=== PATIENT | female | born 1985 | race Caucasian/White ===

== ENCOUNTER 2017-08-30 13:23 | Emergency (ER) | payer SELFPAY ==
[~2017-08-30] VITALS: Ht 162.6 cm; Wt 49.9 kg
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
[2017-08-30] MEDS ORDERED: Bacitracin Oint UD TOPIC ONE (13:45)
[2017-08-30 13:50] VITALS: BP 108/78
[2017-08-30] MEDS ORDERED: Norco 5mg/325mg tab ORAL ONE (14:00)
--- NOTE | 2017-08-30 14:13 | Diagnostic Imaging Report ---
EXAM: XR Right Hand Complete, 3 or More Views CLINICAL HISTORY: PAIN TECHNIQUE: Frontal, lateral and oblique views of the right hand. COMPARISON: No relevant prior studies available. FINDINGS: Bones/joints: No acute fracture. Query lucency/erosion at the base of the fifth metacarpal. Soft tissues: No radiodense foreign body. IMPRESSION: No acute fracture.
--- NOTE | 2017-08-30 14:15 | Diagnostic Imaging Report ---
EXAM: CT Head Without Intravenous Contrast CLINICAL HISTORY: PAIN TECHNIQUE: Axial computed tomography images of the head/brain without intravenous contrast. CTDI is 0.15 + 70.38 mGy and DLP is 1365 mGy-cm. One or more of the following dose reduction techniques were used: automated exposure control, adjustment of the mA and/or kV according to patient size, use of iterative reconstruction technique. COMPARISON: No relevant prior studies available. FINDINGS: Brain: No intracranial hemorrhage. Old lacunes vs. virchow fabian spaces in the basal ganglia. Ventricles: No ventriculomegaly. Bones/joints: No acute fracture. Soft tissues: Soft tissue swelling in the forehead. Sinuses: No acute sinusitis. Mastoid air cells: No mastoid effusion. IMPRESSION: No intracranial hemorrhage.
--- NOTE | 2017-08-30 14:20 | Diagnostic Imaging Report ---
EXAM: XR Left Elbow Complete, 3 or More Views CLINICAL HISTORY: PAIN TECHNIQUE: Frontal, lateral and oblique views of the left elbow. COMPARISON: No relevant prior studies available. FINDINGS: Bones/joints: Comminuted fracture of the olecranon with intra- articular extension. Soft tissues: Soft tissue swelling and effusion. IMPRESSION: Comminuted fracture of the olecranon with intra-articular extension.
[2017-08-30] MEDS ORDERED: Lidocaine 1% MPF 10mg/ml 5ml ONE (14:53)
[2017-08-30] MEDS ORDERED: Lidocaine 1% Plain 30 ml INJ ONE (15:00)
[2017-08-30] MEDS ORDERED: CEPHALEXIN500 MG ORAL (15:10)
[2017-08-30] MEDS ORDERED: PERMETHRIN60 GM TOPIC (15:10)
[2017-08-30] MEDS ORDERED: ACETAMINOPHEN-1 EAC1 ORAL (15:10)
[2017-08-30 15:40] VITALS: BP 77/78
== END 2017-08-30 16:52 | disposition home or self-care (01) ==
LOC: EDBD 13:23 → EMR 14:00
DX: S52.032A Displaced fracture of olecranon process with intraarticular extension of left ulna, initial encounter for closed fracture (principal); S61.215A Laceration without foreign body of left ring finger without damage to nail, initial encounter; W19.XXXA Unspecified fall, initial encounter; Y92.9 Unspecified place or not applicable; B85.2 Pediculosis, unspecified
CPT/HCPCS: 70450; 99284

== ENCOUNTER 2017-09-02 02:01 | Emergency (ER) | payer SELFPAY ==
[~2017-09-02] VITALS: Ht 162.6 cm; Wt 49.9 kg
[~2017-09-02 02:01] MED LIST: ACETAMINOPHEN-1 EAC1 ORAL; CEPHALEXIN500 MG ORAL; PERMETHRIN60 GM TOPIC
[2017-09-02 02:25] VITALS: BP 114/76
[2017-09-02] MEDS ORDERED: PERMETHRIN60 GM TOPIC (03:25)
[2017-09-02] MEDS ORDERED: CEPHALEXIN500 MG ORAL (03:25)
[2017-09-02] MEDS ORDERED: ACETAMINOPHEN-1 EAC1 ORAL (03:25)
[2017-09-02 03:37] VITALS: BP 114/76
--- NOTE | 2017-09-02 05:04 | Emergency Room Report ---
History of Present Illness General Chief Complaint: General Complaint Source: Patient Present Illness HPI 31-year-old female presents ED for evaluation. Patient states that she has a elbow fracture and was seen here recently. States that the splint is loose and needs to be adjusted. Patient also states that she lost her prescriptions. Pain is throbbing, 8 out of 10, nonradiating. No other aggravating relieving factors. Denies any other associated symptoms Allergies: Coded Allergies: No Known Allergies (Unverified , 08/30/17) Patient History Past Medical History: none Past Surgical History: none Pertinent Family History: none Social History: Denies: smoking, alcohol use, drug use Last Menstrual Period: ON PERIOD Now: No Immunizations: UTD Reviewed Nursing Documentation: PMH: Agreed; PSxH: Agreed Nursing Documentation-PMH Past Medical History: No Stated History Review of Systems All Other Systems: negative except mentioned in HPI Physical Exam Vital Signs Date Time Temp Pulse Resp B/P (MAP) Pulse Ox O2 Delivery O2 Flow Rate FiO2 09/02/17 02:10 98.3 98 18 114/76 98 Room Air 98.2 Sp02 EP Interpretation: reviewed, normal General Appearance: no apparent distress, alert, GCS 15, non-toxic Head: normocephalic, other - trudi to scalp ENT: normal ENT inspection Neck: normal inspection Respiratory: normal inspection Cardiovascular #1: normal inspection Gastrointestinal: normal inspection Rectal: deferred Genitourinary: no CVA tenderness Musculoskeletal: tender - L elbow Neurologic: alert, oriented x3, responsive, motor strength/tone normal, sensory intact, speech normal Psychiatric: normal inspection Skin: normal inspection Lymphatic: normal inspection Medical Decision Making Diagnostic Impression: Primary Impression: Aftercare for cast or splint check or change Additional Impression: Olecranon fracture Qualified Codes: S52.022A - Displaced fracture of olecranon process without intraarticular extension of left ulna, initial encounter for closed fracture ER Course Hospital Course 31 yo F presents to ED to have her splint adjusted. s/p L olecranon fx Clinical course The splint appears to be loose. Wrapping redone and splint adjusted accordingly Patient has trudi in her scalp. Need to be removed at 10 day daisy I agreed to provide her with refills of her prescriptions. patient does not have evidence of narcotic prescriptions in CURES Diagnosis - aftercare for cast or splint check, olecranon fx Stable and discharged to home. f/u with orthopedics. return to ED for staple removal. return to ED if symptoms recur/worsen. Last Vital Signs Date Time Temp Pulse Resp B/P (MAP) Pulse Ox O2 Delivery O2 Flow Rate FiO2 09/02/17 03:37 98.2 98 18 114/76 98 Room Air 98.2 Status: improved Disposition: HOME, SELF-CARE Condition: Stable Scripts Acetaminophen With Codeine (T#3) (TYLENOL #3 TAB*) Y Tab 1 TAB ORAL Q4H PRN for For Pain, #10 TAB Prov: Saleem Smith MD 09/02/17 Permethrin* (ELIMITE*) 60 Gm Cream..g. 1 APPLIC TOPIC ONCE, #60 GM 0 Refills Apply cream from head to toe; leave on for 8-14 hours before washing off with water; may reapply in 1 week if live mites appear. Prov: Saleem Smith MD 09/02/17 Cephalexin* (KEFLEX*) 500 Mg Capsule 500 MG ORAL EVERY 12 HOURS, #14 CAP 0 Refills Prov: Saleem Smith MD 09/02/17 Patient Instructions: Distal Humerus Elbow Fracture With [facility] Saleem Smith MD Sep 02, 2017 05:04
== END 2017-09-02 03:39 | disposition home or self-care (01) ==
LOC: EMR 02:28
DX: S52.022D Displaced fracture of olecranon process without intraarticular extension of left ulna, subsequent encounter for closed fracture with routine healing (principal); X58.XXXD Exposure to other specified factors, subsequent encounter
CPT/HCPCS: 99284